=== PATIENT | male | born 1945 | race Caucasian/White ===

== ENCOUNTER → 2025-03-21 13:08 | Outpatient (REF) | payer MEDICARE, BC, SELFPAY | LOC: HWRAD 13:08 | PROVIDERS: ATTENDING PHYSICIAN Physical Medicine & Rehabilitation; FAMILY PHYSICIAN Family Medicine | DX: S40.011A Contusion of right shoulder, initial encounter (principal) | CPT/HCPCS: 73200 ==

== ENCOUNTER → 2025-05-27 10:53 | Outpatient (REF) | payer MEDICARE, BC, SELFPAY | LOC: MRI 3T 10:53 | PROVIDERS: ATTENDING PHYSICIAN Physician Assistant; FAMILY PHYSICIAN Family Medicine | DX: M25.511 Pain in right shoulder (principal) | CPT/HCPCS: 73221 ==